=== PATIENT | male | born 1965 | race Caucasian/White ===

== ENCOUNTER 2024-07-31 00:33 | Emergency (ER) | payer MEDICAID, OTHER ==
[~2024-07-31] VITALS: Ht 160 cm; Wt 72.0 kg
[2024-07-31 00:35] VITALS: O2SAT 94
[2024-07-31 01:05] LABS: BASOPHILS % 2.4 % (0.0-2.0); EOSINOPHILS % 4.3 % (0.0-5.0); HEMATOCRIT. 35.6 % (42.0-52.0); HEMOGLOBIN. 11.8 g/dL (14.0-18.0); MEAN CORPUSCULAR HGB CONC 33.2 g/dL (31.0-37.0); MEAN CORPUSCULAR VOLUME 90.4 fL (80.0-94.0); MEAN PLATELET VOLUME 7.3 fl (7.4-10.4); MONOCYTES % 10.9 % (2.0-8.0); NEUTROPHILS % 47.4 % (40.0-76.0); PLATELET 318 x1000/uL (130-400); RED BLOOD CELL COUNT 3.94 mill/uL (4.7-6.1); RED CELL DISTRIBUTION WIDTH 15.1 % (11.6-14.6); WHITE BLOOD COUNT 5.1 x1000/uL (4.5-11.0)
[2024-07-31 01:17] LABS: CARBON DIOXIDE 29 mEq/L (21-32); CHLORIDE 105 mEq/L (98-107); POTASSIUM 3.6 mEq/L (3.5-5.1); SODIUM 145 mEq/L (136-145)
[2024-07-31 01:22] LABS: CREATININE 1.2 mg/dL (0.6-1.3)
[2024-07-31 01:23] LABS: GLUCOSE 117 mg/dL (70-105); TROPONIN I HIGH SENSITIVITY 13 ng/L (3.0-53); UREA NITROGEN BLOOD 15 mg/dL (9-23)
[2024-07-31 01:31] LABS: INR 0.9; PARTIAL THROMBOPLASTIN TIME 27.6 sec (23.4-31.0); PROTHROMBIN TIME 10.2 sec (9.6-11.0)
[2024-07-31 01:32] LABS: ETHANOL BLOOD 327 mg/dL (<10)
[2024-07-31 09:10] VITALS: BP 123/86; PULSE 96; RESP 17; TEMP 37.2; O2SAT 98
== END 2024-07-31 11:26 | disposition left against medical advice (07) ==
LOC: ER 00:33 → EDBEDREQ 03:59 → CANBEDREQ 11:26 → ER 11:26
DX: R06.02 Shortness of breath (principal); F10.129 Alcohol abuse with intoxication, unspecified; E11.9 Type 2 diabetes mellitus without complications; I11.0 Hypertensive heart disease with heart failure; I50.9 Heart failure, unspecified; Z88.0 Allergy status to penicillin; Y90.8 Blood alcohol level of 240 mg/100 ml or more
CPT/HCPCS: 36415; 71045; 80048; 80320; 83880; 84484; 85025; 93005; 99285; G0480